=== PATIENT | female | born 1970 | race Caucasian/White ===

== ENCOUNTER 2017-08-30 00:26 | Emergency (ER) | payer BC ==
[~2017-08-30] VITALS: Ht 162.6 cm; Wt 68.0 kg
[2017-08-30 00:56] LABS: Source, Urine Clean Catch
[2017-08-30 00:58] LABS: Bilirubin, Urine Neg (Neg); Blood, Urine 5+ (Neg); Glucose Qualitative, Urine Neg (Neg); Ketones, Urine Neg (Neg); Leukocyte Esterase, Urine 3+ (Neg); Nitrite, Urine Neg (Neg); Protein, Urine 3+ (Neg); Specific Gravity, Urine 1.015 (1.003-1.022); Urobilinogen, Urine NORM (Normal); pH, Urine 6.5 (5.0-8.0)
[2017-08-30 01:04] LABS: Appearance, Urine Hazy (Clear); Color, Urine Yellow (P-Yellow)
[2017-08-30 01:05] LABS: Amorphous Light (0-Heavy); Bacteria Many /hpf; Red Blood Cells, Urine 50-100 /hpf (0-2); Squamous Epithelial Cells Not Seen /hpf (Few); White Blood Cells, Urine TNTC /hpf (0-5)
[2017-08-30] MEDS ORDERED: Pyridium200 MG PO (01:21)
[2017-08-30] MEDS ORDERED: Cefpodoxime Pr100 MG PO (01:21)
[2017-08-30] MEDS ORDERED: ONDA4ODT MM (01:21)
[2017-08-30] MEDS ORDERED: FLUC150A PO (01:21)
== END 2017-08-30 01:58 | disposition home or self-care (01) ==
LOC: ER 00:26
PROVIDERS: Emergency Medicine
DX: N39.0 Urinary tract infection, site not specified (principal); Z98.51 Tubal ligation status
CPT/HCPCS: 81001; 87077; 87086; 87186; 96372; 99283; J0696

== ENCOUNTER → 2017-10-12 | Outpatient (CLI) | payer BC ==
[~2017-10-12] MED LIST: Cefpodoxime Pr100 MG PO; FLUC150A PO; ONDA4ODT MM; Pyridium200 MG PO
[2017-10-12 12:56] LABS: BASOPHILS ABSOLUTE AUTO 0.05 K/mm3 (0.00-0.23); BASOPHILS PERCENT AUTO 1 % (0-2); EOSINOPHILS ABSOLUTE AUTO 0.04 K/mm3 (0.00-0.68); EOSINOPHILS PERCENT AUTO 1 % (0-6); Hematocrit 41.2 % (33.0-51.0); Hemoglobin 13.4 g/dL (11.5-16.0); IMMATURE GRAN ABSOLUTE AUTO 0.01 K/mm3 (0.00-0.10); IMMATURE GRAN PERCENT AUTO 0 % (0-1); LYMPHOCYTES PERCENT AUTO 33 % (21-46); MONOCYTES ABSOLUTE AUTO 0.41 K/mm3 (0.16-1.47); MONOCYTES PERCENT AUTO 7 % (4-13); Mean Corpuscular HGB Conc 32.5 g/dL (31.5-36.5); Mean Corpuscular Volume 92 fL (80-100); Mean Platelet Volume 11.8 fL (9.1-12.4); NEUTROPHILS ABSOLUTE AUTO 3.53 K/mm3 (1.96-9.15); NEUTROPHILS PERCENT AUTO 58 % (41-73); Platelet Count 214 K/mm3 (150-400); RDW Coefficient Variation 13.2 % (11.7-14.2); RDW Standard Deviation 44.9 fL (35.1-46.3); Red Blood Cell Count 4.47 M/mm3 (3.80-5.20); White Blood Cell Count 6.04 K/mm3 (4.00-11.30)
[2017-10-12 13:23] LABS: Alanine Aminotransfer (ALT/SGP 41 U/L (12-78); Albumin/Globulin Ratio 1.1 (0.8-1.8); Alk Phos 70 U/L (50-136); Anion Gap 7 mmol/L (6-16); Aspartate Aminotrans (AST/SGOT 20 U/L (12-37); Bilirubin, Total 0.5 mg/dL (0.1-1.0); Blood Urea Nitrogen 18 mg/dL (8-24); Bun/Creatinine Ratio 32.3 (12.0-20.0); CO2, Blood 28 mmol/L (21-32); Calcium, Blood 8.5 mg/dL (8.5-10.1); Chloride, Blood 105 mmol/L (98-108); Creatinine, Blood 0.56 mg/dL (0.40-1.00); Globulin, Blood 3.5 g/dL (2.2-4.0); Glomerular Filtration Rate >60 (60-); Glucose, Blood 84 mg/dL (70-99); Potassium, Blood 3.8 mmol/L (3.5-5.5); Sodium, Blood 140 mmol/L (136-145); Total Protein, Blood 7.5 g/dL (6.4-8.2)
== END | disposition home or self-care (01) ==
LOC: LAB 12:25
PROVIDERS: Nurse Practitioner
DX: L30.9 Dermatitis, unspecified (principal)
CPT/HCPCS: 80053; 84443; 85025

== ENCOUNTER → 2017-10-13 | Outpatient (CLI) | payer BC | LOC: LAB 08:45 | DX: L30.9 Dermatitis, unspecified (principal) | CPT/HCPCS: 82380 ==